=== PATIENT | female | born 1975 | race Two or more races ===

== ENCOUNTER 2023-06-14 08:44 | Outpatient (CLI) | payer OTHER ==
[~2023-06-14 08:44] MED LIST: COZAAR50 MG PO; HUMALOG100 U/ML SQ; LANTUS100 U/ML SQ; METFORMIN HCL500 M1 PO
== END 2023-06-14 08:50 | disposition home or self-care (01) ==
LOC: SONOGRAMA 08:44
PROVIDERS: ATTEND Internal Medicine Endocrinology, Diabetes & Metabolism
DX: M75.101 Unspecified rotator cuff tear or rupture of right shoulder, not specified as traumatic (principal)

== ENCOUNTER 2023-10-27 11:59 | Emergency (ER) | payer OTHER ==
[~2023-10-27] VITALS: Ht 157.5 cm; Wt 77.1 kg
[2023-10-27] MEDS ORDERED: HUMALOG100 UNIT/2 (12:09)
[2023-10-27] MEDS ORDERED: CRESTOR10 MG (12:10)
[2023-10-27] MEDS ORDERED: FOSAMAX70 MG PO (12:11)
[2023-10-27] MEDS ORDERED: AVAPRO150 MG PO (12:11)
[2023-10-27] MEDS ORDERED: TIROSINT13 MCG (12:11)
[2023-10-27] MEDS ORDERED: LASIX20 MG (12:12)
[2023-10-27] MEDS ORDERED: GEMFIBROZIL600 MG (12:12)
[2023-10-27] MEDS ORDERED: TRAMADOL HCL 50 MG TABLET PO ONE (12:45)
== END 2023-10-27 15:13 | disposition home or self-care (01) ==
LOC: ER 12:00
DX: S93.491A Sprain of other ligament of right ankle, initial encounter (principal); X50.1XXA Overexertion from prolonged static or awkward postures, initial encounter; Y93.89 Activity, other specified; Y92.89 Other specified places as the place of occurrence of the external cause; Z88.8 Allergy status to other drugs, medicaments and biological substances

== ENCOUNTER 2024-12-09 15:38 | Emergency (ER) | payer OTHER ==
[~2024-12-09] VITALS: Ht 157.5 cm; Wt 70.3 kg
[~2024-12-09 15:38] MED LIST changes: +AVAPRO150 MG PO; +CRESTOR10 MG; +FOSAMAX70 MG PO; +GEMFIBROZIL600 MG; +HUMALOG100 UNIT/2; +LASIX20 MG; +TIROSINT13 MCG
[2024-12-09] MEDS ORDERED: ACETAMINOPHEN 500 MG GEL..CAP PO ONE (17:00)
[2024-12-09 17:08] LABS: BASO % 0.2 % (0.1-1.2); EOS # 0.40 (0.04-0.54); EOS % 3.2 % (0.7-7.0); LYMPH # 2.82 (1.18-3.74); LYMPH % 22.4 % (19.3-53.1); MEAN PLATELET VOLUME 9.80 fl (9.4-12.4); MONO # 0.60 (0.24-0.82); MONO % 4.8 % (4.7-12.5); NEUT # 8.73 (1.56-6.13); NEUT % 69.2 % (34.0-71.1); RED CELL DISTRIBUTION WIDTH 14.7 % (11.6-14.4)
[2024-12-09 17:35] LABS: URINE APPEARANCE Clear; URINE BILIRRUBIN Negative (NEGATIVE); URINE BLOOD Negative; URINE COLOR Yellow; URINE GLUCOSE Negative (NEGATIVE); URINE KETONE Negative (NEGATIVE); URINE LEUKOCYTE Negative; URINE NITRATE Negative; URINE PROTEIN 30 (NEGATIVE); URINE UROBILINOGEN 0.2 E.U./dl
[2024-12-09 17:38] LABS: URINE BACTERIA 339.5 uL (0.0-1933); URINE EPITHELIAL CELLS 10.6 uL (0.0-38.8); URINE WBC 6.7 uL (0.0-23.2)
[2024-12-09 17:42] LABS: ALT/SGPT 116.0 U/L (12-78); AST/SGOT 220.0 U/L (15-37); BILIRUBIN TOTAL 0.24 mg/dL (0.3-1.2); BUN CREA RATIO 35.0 (7.0-25.0); CREATININE SERUM 0.68 mg/dL (0.55-1.02); GFR 92.35; GLOBULINA 4.7 G/DL (2.4-3.5); GLUCOSE FASTING 100.0 mg/dL (65-100); OSMOLALITY SERUM 285.0 MOSM/KG (275-295)
[2024-12-09 17:42] LABS: URINE CAST 0.14 uL (0.0-1.40); URINE RBC 1.1 uL (0.0-20.8)
[2024-12-09] MEDS ORDERED: TAMSULOSIN HCL 0.4 MG CAP PO STA (21:52)
[2024-12-09] MEDS ORDERED: ONDANSETRON HCL 2 MG/ML VIAL IV STA (21:52)
[2024-12-09] MEDS ORDERED: ONDANSETRON 4 MG TAB.RAPDIS PO ONE (22:00)
[2024-12-09] MEDS ORDERED: ACETAMINOPHEN WITH CODEINE 1 UDTAB TABLET PO ONE (22:00)
== END 2024-12-09 22:25 | disposition home or self-care (01) ==
LOC: ER 16:06
PROVIDERS: Emergency Medicine
DX: N20.1 Calculus of ureter (principal); R10.9 Unspecified abdominal pain; E11.9 Type 2 diabetes mellitus without complications; Z79.4 Long term (current) use of insulin; Z88.6 Allergy status to analgesic agent; E03.8 Other specified hypothyroidism; I10 Essential (primary) hypertension; Z87.442 Personal history of urinary calculi; N20.0 Calculus of kidney; K80.20 Calculus of gallbladder without cholecystitis without obstruction

== ENCOUNTER 2024-12-12 10:56 | Outpatient (CLI) | payer OTHER | END 2024-12-12 11:06 | disposition home or self-care (01) | LOC: MAMO-SONO 10:56 | PROVIDERS: ATTEND Obstetrics & Gynecology | DX: Z12.31 Encounter for screening mammogram for malignant neoplasm of breast (principal); N64.4 Mastodynia; N63.0 Unspecified lump in unspecified breast ==

== ENCOUNTER 2025-01-17 08:46 | Outpatient (CLI) | payer OTHER | END 2025-01-17 09:03 | disposition home or self-care (01) | LOC: SONOGRAMA 08:46 | DX: K76.2 Central hemorrhagic necrosis of liver (principal); E10.10 Type 1 diabetes mellitus with ketoacidosis without coma ==